=== PATIENT | female | born 1975 | race American Indian/Alaskan Native ===

== ENCOUNTER 2016-08-15 18:57 | Emergency (ER) | payer MEDICAID ==
[2016-08-15 19:10] VITALS: BP 104/66; PULSE 66; RESP 18; TEMP 97.6; O2SAT 100
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
== END 2016-08-15 20:22 | disposition home or self-care (01) ==
LOC: C.ER 18:57
DX: Z00.00 Encounter for general adult medical examination without abnormal findings (principal)

== ENCOUNTER 2016-08-16 07:47 | Emergency (ER) | payer MEDICAID ==
[2016-08-16 07:51] VITALS: BP 116/79; PULSE 51; RESP 18; TEMP 97.5; O2SAT 100; BMI 27.3
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
== END 2016-08-16 08:42 | disposition home or self-care (01) ==
LOC: C.ER 07:47
DX: S39.92XD Unspecified injury of lower back, subsequent encounter (principal); W46.0XXD Contact with hypodermic needle, subsequent encounter

== ENCOUNTER 2016-09-02 19:37 | Observation (INO) | payer MEDICAID ==
[2016-09-02 19:37] VITALS: BMI 27.3
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
[2016-09-02 22:31] LABS: BASO % 0.8 % (0.0-2.0); EOS # 0.1 K/uL (0.0-0.7); EOS % 1.7 % (0.0-4.0); HEMATOCRIT 35.4 % (34.0-47.0); LYMPH % 36.4 % (20.0-40.0); MEAN CELL VOLUME 89.4 fL (81.0-99.0); MEAN CORPUSCULAR HEMOGLOBIN 28.6 pg (27.0-31.0); MEAN PLATELET VOLUME 6.7 fL (7.2-11.7); MONO # 0.7 K/uL (0.0-0.8); MONO % 13.7 % (0.0-10.0); NRBC % 0.1 % (0.0-2.0); RED CELL DISTRIBUTION WIDTH 14.3 % (11.5-14.5); WHITE BLOOD COUNT 5.4 K/uL (4.8-10.8)
[2016-09-02 22:38] LABS: CHLORIDE 100 mmol/L (98-107)
[2016-09-02 22:39] LABS: POTASSIUM 3.5 mmol/L (3.6-5.2); SODIUM 138 mmol/L (132-148)
[2016-09-02 22:41] LABS: ALB/GLOB RATIO 1.4 (1.0-2.1); AST/SGOT 38 U/L (14-36); BILIRUBIN,TOTAL 0.3 mg/dL (0.2-1.3); TOTAL PROTEIN 7.2 g/dL (6.3-8.3)
[2016-09-02 22:42] LABS: ALCOHOL SERUM < 10 mg/dl (0-10); ALKALINE PHOSPHATASE 53 U/L (38-126); ALT/SGPT 33 U/L (9-52); BLOOD UREA NITROGEN 10 mg/dL (7-17); CALCIUM 8.8 mg/dl (8.6-10.4); GLUCOSE,RANDOM 66 mg/dL (65-105); MAGNESIUM 1.9 mg/dL (1.6-2.3)
[2016-09-02 22:46] LABS: CARBON DIOXIDE 24 mmol/L (22-30); GFR AFRICAN-AMERICAN > 60
[2016-09-03 06:39] VITALS: BP 132/82; PULSE 82; RESP 20; TEMP 98; O2SAT 98
== END 2016-09-03 05:27 | disposition home or self-care (01) ==
LOC: C.ER 19:37 → C.9OBSV 23:29
PROVIDERS: ADMIT Emergency Medicine; ATTEND Emergency Medicine
DX: R60.0 Localized edema (principal)
CPT/HCPCS: 80053; 80320; 83735; 83880; 85025; G0378

== ENCOUNTER 2016-09-14 06:48 | Emergency (ER) | payer MEDICAID ==
[2016-09-14 06:48] VITALS: BMI 27.3
[2016-09-14 07:10] VITALS: O2SAT 100
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
[2016-09-14] MEDS ORDERED: Bacitracin 500 Units/gm Oint Foilpak UD TOP ONE (07:44)
[2016-09-14 08:21] LABS: HEMATOCRIT 35.8 % (34.0-47.0); MEAN CORPUSCULAR HEMOGLOBIN 29.2 pg (27.0-31.0); MEAN CORPUSCULAR HGB CONC 32.4 g/dL (33.0-37.0); MEAN PLATELET VOLUME 6.8 fL (7.2-11.7); RED CELL DISTRIBUTION WIDTH 14.2 % (11.5-14.5); WHITE BLOOD COUNT 4.5 K/uL (4.8-10.8)
[2016-09-14 08:29] LABS: RBC URINE 4 /hpf (0-3); URINE BILIRUBIN NEGATIVE (NEGATIVE); URINE BLOOD 1+ (NEGATIVE); URINE COLOR Straw (YELLOW); URINE GLUCOSE (UA) NORMAL (Normal); URINE KETONE NEGATIVE (NEGATIVE); URINE LEUKOCYTE ESTERASE NEG Leu/uL (Negative); URINE PROTEIN NEGATIVE (NEGATIVE); URINE UROBILINOGEN NORMAL mg/dL (0.2-1.0); WBC URINE 1 /hpf (0-5)
[2016-09-14 08:30] LABS: CHLORIDE 100 mmol/L (98-107); SODIUM 139 mmol/L (132-148)
[2016-09-14 08:32] LABS: ALB/GLOB RATIO 1.3 (1.0-2.1); ALKALINE PHOSPHATASE 52 U/L (38-126); AST/SGOT 33 U/L (14-36); BILIRUBIN,TOTAL 0.3 mg/dL (0.2-1.3); BLOOD UREA NITROGEN 12 mg/dL (7-17); CARBON DIOXIDE 27 mmol/L (22-30); GFR AFRICAN-AMERICAN > 60; TOTAL PROTEIN 7.9 g/dL (6.3-8.3)
[2016-09-14 08:33] LABS: ALCOHOL SERUM < 10 mg/dl (0-10); ALT/SGPT 40 U/L (9-52); GLUCOSE,RANDOM 84 mg/dL (65-105)
[2016-09-14] MEDS ORDERED: Bacitracin 500 Units/gm Oint Foilpak UD ONE (09:05)
[2016-09-14 10:10] VITALS: BP 103/70; PULSE 64; RESP 18; TEMP 97.5
== END 2016-09-14 10:24 | disposition home or self-care (01) ==
LOC: C.ER 06:48
DX: S39.92XA Unspecified injury of lower back, initial encounter (principal); Y08.89XA Assault by other specified means, initial encounter; Y92.89 Other specified places as the place of occurrence of the external cause